=== PATIENT | male | born 1955 | race Caucasian/White ===

== ENCOUNTER 2019-10-15 09:33 | Emergency (ER) | payer BC, OTHER ==
[~2019-10-15] VITALS: Ht 170.2 cm; Wt 88.6 kg
--- NOTE | 2019-10-15 10:01 | REP ---
Clinical: Acute chest pain . Comparison: None . Findings: The mediastinum and cardiac silhouette are stable and within normal limits for portable technique. The lung edge are clear without acute consolidation, effusion, or pneumothorax. Skeletal structures are intact. Impression: No acute cardiopulmonary process appreciated. Electronically Signed by Gerald Roche MD 10/15/2019 09:53 A
[2019-10-15 10:15] LABS: BASO # 0.1 10^3/uL (0.0-0.2); BASO % 0.6 % (0.0-1.0); EOS # 0.1 10^3/uL (0.0-0.5); EOS % 1.2 % (0.0-3.0); HEMATOCRIT 52.3 % (42.0-52.0); HEMOGLOBIN 17.1 g/dl (13.5-17.5); LYMPH # 1.4 10^3/uL (1.5-5.0); LYMPH % 17.3 % (24.0-44.0); MEAN CORPUSCULAR HEMOGLOBIN 29.9 pg (27.0-33.0); MEAN CORPUSCULAR HGB CONC 32.7 g/dl (32.0-36.5); MEAN CORPUSCULAR VOLUME 91.6 fl (80.0-96.0); MONO # 0.8 10^3/uL (0.0-0.8); MONO % 10.3 % (0.0-5.0); NEUTROPHILS # 5.6 10^3/uL (1.5-8.5); NEUTROPHILS % 70.4 % (36.0-66.0); PLATELET COUNT, AUTOMATED 247 10^3/uL (150-450); RED BLOOD COUNT 5.71 10^6/uL (4.30-6.10)
[2019-10-15] MEDS ORDERED: OSTETAB2 PO (10:20)
[2019-10-15] MEDS ORDERED: CVS400CA PO (10:20)
[2019-10-15] MEDS ORDERED: ASPI81TA85 PO (10:20)
[2019-10-15] MEDS ORDERED: FISH1000 PO (10:20)
[2019-10-15] MEDS ORDERED: NAPR220C14 PO (10:20)
[2019-10-15] MEDS ORDERED: ATOR1TAB21 PO (10:20)
[2019-10-15] MEDS ORDERED: GNP250TA9 PO (10:20)
[2019-10-15] MEDS ORDERED: NITROGLYCERIN 0.4 MG SUBL TABLET SL PRN (10:30)
[2019-10-15 10:37] LABS: BLOOD UREA NITROGEN 23 MG/DL (7-18); CALCIUM LEVEL 9.3 MG/DL (8.8-10.2); CARBON DIOXIDE LEVEL 27 MEQ/L (21-32); CHLORIDE LEVEL 109 MEQ/L (98-107); CK-MB VALUE MASS 24.6 NG/ML (<3.6); CPK CREATINE PHOSPHOKINASE 330 U/L (39-308); CREATININE FOR GFR 1.16 MG/DL (0.70-1.30); GLOMERULAR FILTRATION RATE > 60.0 (>49); GLUCOSE, FASTING 124 MG/DL (70-100); MB/CK RELATIVE INDEX 7.45 (< OR =4); POTASSIUM SERUM 4.3 MEQ/L (3.5-5.1); SODIUM LEVEL 143 MEQ/L (136-145); TROPONIN I 0.07 NG/ML (< 0.10)
[2019-10-15 10:42] VITALS: BP 161/90
[2019-10-15 12:56] LABS: CK-MB VALUE MASS 24.3 NG/ML (<3.6); MB/CK RELATIVE INDEX 7.74 (< OR =4); TROPONIN I 0.73 NG/ML (< 0.10)
[2019-10-15] MEDS ORDERED: HEPARIN DRIP 25,000 UNITS in IV 1 EA IV SCH (13:13)
[2019-10-15] MEDS ORDERED: CLOPIDOGREL 300 MG TAB (PLAVIX) PO ONE (13:15)
[2019-10-15] MEDS ORDERED: HEPARIN SOD (PORCINE) 5000 UNITS/ML VIAL IV ONE (13:15)
[2019-10-15 14:13] VITALS: BP 161/105
--- NOTE | 2019-10-15 19:50 | ECGEPIP ---
[facility] - ED Test Date: 2019-10-15 Pat Name: VICENTE CARRION Department: Room: - Gender: Male [employer] Teacher: JENNIFER : 1955 Requested By: Rafaela Feliciano Order Number: [id number] Reading MD: Elgin North Measurements Intervals [place] Rate: 51 P: 49 MD: 128 QRS: 69 QRSD: 104 T: 64 QT: 407 QTc: 378 Interpretive Statements SINUS BRADYCARDIA NONSPECIFIC T-WAVE ABNORMALITY NO PRIORS FOR COMPARISON Electronically Signed on 10-15-2019 19:50:07 EST by Elgin North
== END 2019-10-15 14:15 | disposition short-term general hospital (02) ==
LOC: EDBD 09:33 → M ED 09:33
DX: I24.9 Acute ischemic heart disease, unspecified (principal); R00.1 Bradycardia, unspecified; R06.02 Shortness of breath; R11.0 Nausea; E78.5 Hyperlipidemia, unspecified; R73.03 Prediabetes; Z82.49 Family history of ischemic heart disease and other diseases of the circulatory system; Z79.899 Other long term (current) drug therapy; Z79.82 Long term (current) use of aspirin

== ENCOUNTER → 2020-01-21 | Outpatient (REF) | payer BC ==
[~2020-01-21] MED LIST: ASPI81TA85 PO; ATOR1TAB21 PO; CVS400CA PO; FISH1000 PO; GNP250TA9 PO; NAPR220C14 PO; OSTETAB2 PO
[2020-01-21 14:22] LABS: ALBUMIN 4.1 GM/DL (3.2-5.2); ALT/SGPT 81 U/L (12-78); BILIRUBIN,TOTAL 1.7 MG/DL (0.2-1.0); BLOOD UREA NITROGEN 25 MG/DL (7-18); CALCIUM LEVEL 9.5 MG/DL (8.8-10.2); CARBON DIOXIDE LEVEL 30 MEQ/L (21-32); CHLORIDE LEVEL 108 MEQ/L (98-107); CHOLESTEROL LEVEL 136 MG/DL (<200); CREATININE FOR GFR 1.06 MG/DL (0.70-1.30); GLOMERULAR FILTRATION RATE > 60.0 (>49); GLUCOSE, FASTING 99 MG/DL (70-100); HDL CHOLESTEROL 44 MG/DL (>40); LDL CHOLESTEROL 69 MG/DL (<100); NON-HDL-C 92 MG/DL; POTASSIUM SERUM 5.1 MEQ/L (3.5-5.1); SODIUM LEVEL 141 MEQ/L (136-145); TRIGLYCERIDES LEVEL 116 MG/DL (<150)
== END ==
LOC: M LABDRWAD 13:02
PROVIDERS: ATTEND Nurse Practitioner Family
DX: E78.5 Hyperlipidemia, unspecified (principal)

== ENCOUNTER → 2020-07-23 | Outpatient (REF) | payer BC ==
[~2020-07-23] MED LIST changes: -ASPI81TA85 PO; +ASPI81TA86 PO
[2020-07-23 21:27] LABS: ALBUMIN 3.9 GM/DL (3.2-5.2); BILIRUBIN,TOTAL 1.7 MG/DL (0.2-1.0); CALCIUM LEVEL 9.1 MG/DL (8.8-10.2); CHOLESTEROL RISK RATIO 2.796 (<5); CREATININE FOR GFR 1.32 MG/DL (0.70-1.30); GLOMERULAR FILTRATION RATE 57.9 (>49); POTASSIUM SERUM 4.4 MEQ/L (3.5-5.1); TOTAL 25(OH) VITAMIN D 87.9 NG/ML (30.0-100.0); TOTAL PROTEIN 6.9 GM/DL (6.4-8.2)
== END ==
LOC: M LABDRWAD 08:00
PROVIDERS: ATTEND Nurse Practitioner Family
DX: I25.10 Atherosclerotic heart disease of native coronary artery without angina pectoris (principal); Z98.61 Coronary angioplasty status

== ENCOUNTER → 2020-10-27 | Outpatient (CLI) | payer SELFPAY | LOC: M LABSMTC 12:44 | PROVIDERS: ATTEND Pediatrics | DX: Z20.828 Contact with and (suspected) exposure to other viral communicable diseases (principal) ==

== ENCOUNTER → 2020-12-16 | Outpatient (REF) | payer BC, MEDICARE ==
[2020-12-16 14:07] LABS: ALBUMIN 4.1 GM/DL (3.2-5.2); ALT/SGPT 74 U/L (12-78); BILIRUBIN,TOTAL 1.8 MG/DL (0.2-1.0); BLOOD UREA NITROGEN 28 MG/DL (7-18); CARBON DIOXIDE LEVEL 30 MEQ/L (21-32); CHLORIDE LEVEL 103 MEQ/L (98-107); CHOLESTEROL LEVEL 181 MG/DL (<200); GLOMERULAR FILTRATION RATE > 60.0 (>49); GLUCOSE, FASTING 114 MG/DL (70-100); HDL CHOLESTEROL 52 MG/DL (>40); LDL CHOLESTEROL 98 MG/DL (<100); NON-HDL-C 129 MG/DL; SODIUM LEVEL 140 MEQ/L (136-145); TOTAL PROTEIN 6.9 GM/DL (6.4-8.2); TRIGLYCERIDES LEVEL 154 MG/DL (<150)
== END ==
LOC: M LABDRWAD 12:44
PROVIDERS: ATTEND Nurse Practitioner Family
DX: E78.49 Other hyperlipidemia (principal); I25.10 Atherosclerotic heart disease of native coronary artery without angina pectoris; Z98.61 Coronary angioplasty status

== ENCOUNTER → 2021-06-15 | Outpatient (REF) | payer MEDICARE ==
[2021-06-15 14:41] LABS: ALT/SGPT 68 U/L (12-78); BLOOD UREA NITROGEN 28 MG/DL (7-18); CARBON DIOXIDE LEVEL 28 MEQ/L (21-32); CHLORIDE LEVEL 108 MEQ/L (98-107); CHOLESTEROL LEVEL 190 MG/DL (<200); CHOLESTEROL RISK RATIO 3.653 (<5); CREATININE FOR GFR 1.09 MG/DL (0.70-1.30); GLOMERULAR FILTRATION RATE > 60.0 (>49); GLUCOSE, FASTING 111 MG/DL (70-100); HDL CHOLESTEROL 52 MG/DL (>40); LDL CHOLESTEROL 110 MG/DL (<100); NON-HDL-C 138 MG/DL; POTASSIUM SERUM 4.5 MEQ/L (3.5-5.1); SODIUM LEVEL 139 MEQ/L (136-145); TOTAL PROTEIN 7.2 GM/DL (6.4-8.2); TRIGLYCERIDES LEVEL 138 MG/DL (<150)
== END ==
LOC: M LABDRWAD 12:35
PROVIDERS: ATTEND Nurse Practitioner Family
DX: I25.10 Atherosclerotic heart disease of native coronary artery without angina pectoris (principal); Z98.61 Coronary angioplasty status

== ENCOUNTER → 2021-10-21 | Outpatient (REF) | payer MEDICARE ==
[2021-10-21 13:31] LABS: ALBUMIN 3.6 GM/DL (3.2-5.2); ALT/SGPT 57 U/L (12-78); BILIRUBIN,TOTAL 1.1 MG/DL (0.2-1.0); BLOOD UREA NITROGEN 27 MG/DL (7-18); CALCIUM LEVEL 9.8 MG/DL (8.8-10.2); CARBON DIOXIDE LEVEL 28 MEQ/L (21-32); CHLORIDE LEVEL 107 MEQ/L (98-107); CHOLESTEROL LEVEL 134 MG/DL (<200); CHOLESTEROL RISK RATIO 2.576 (<5); CREATININE FOR GFR 1.14 MG/DL (0.70-1.30); GLOMERULAR FILTRATION RATE > 60.0 (>49); GLUCOSE, FASTING 156 MG/DL (70-100); HDL CHOLESTEROL 52 MG/DL (>40); LDL CHOLESTEROL 57 MG/DL (<100); NON-HDL-C 82 MG/DL; POTASSIUM SERUM 4.6 MEQ/L (3.5-5.1); SODIUM LEVEL 141 MEQ/L (136-145); TOTAL PROTEIN 6.8 GM/DL (6.4-8.2); TRIGLYCERIDES LEVEL 126 MG/DL (<150)
== END ==
LOC: M LABDRWAD 12:18
PROVIDERS: ATTEND Nurse Practitioner Family
DX: I25.10 Atherosclerotic heart disease of native coronary artery without angina pectoris (principal); Z98.61 Coronary angioplasty status; E78.49 Other hyperlipidemia

== ENCOUNTER → 2022-01-26 | Outpatient (REF) | payer MEDICARE ==
[2022-01-26 13:57] LABS: ALBUMIN 3.9 GM/DL (3.2-5.2); ALT/SGPT 73 U/L (12-78); BILIRUBIN,TOTAL 2.1 MG/DL (0.2-1.0); BLOOD UREA NITROGEN 25 MG/DL (7-18); CALCIUM LEVEL 9.4 MG/DL (8.8-10.2); CARBON DIOXIDE LEVEL 29 MEQ/L (21-32); CHLORIDE LEVEL 108 MEQ/L (98-107); CHOLESTEROL LEVEL 142 MG/DL (<200); CHOLESTEROL RISK RATIO 2.897 (<5); CREATININE FOR GFR 1.12 MG/DL (0.70-1.30); GLOMERULAR FILTRATION RATE > 60.0 (>49); GLUCOSE, FASTING 100 MG/DL (70-100); HDL CHOLESTEROL 49 MG/DL (>40); LDL CHOLESTEROL 63 MG/DL (<100); NON-HDL-C 93 MG/DL; POTASSIUM SERUM 4.2 MEQ/L (3.5-5.1); SODIUM LEVEL 141 MEQ/L (136-145); TOTAL PROTEIN 6.9 GM/DL (6.4-8.2); TRIGLYCERIDES LEVEL 151 MG/DL (<150)
== END ==
LOC: M LABDRWAD 12:22
PROVIDERS: ATTEND Nurse Practitioner Family
DX: I25.10 Atherosclerotic heart disease of native coronary artery without angina pectoris (principal); Z98.61 Coronary angioplasty status

== ENCOUNTER → 2022-03-09 | Outpatient (CLI) | payer MEDICARE ==
[2022-03-09 12:42] LABS: HEMATOCRIT 50.5 % (42.0-52.0); HEMOGLOBIN 16.6 g/dl (13.5-17.5); MEAN CORPUSCULAR HEMOGLOBIN 29.2 pg (27.0-33.0); MEAN CORPUSCULAR HGB CONC 32.9 g/dl (32.0-36.5); MEAN CORPUSCULAR VOLUME 88.9 fl (80.0-96.0); PLATELET COUNT, AUTOMATED 218 10^3/uL (150-450); RED BLOOD COUNT 5.68 10^6/uL (4.30-6.10); WHITE BLOOD COUNT 6.1 10^3/uL (4.0-10.0)
[2022-03-09 12:52] LABS: IRON (FE) 106 UG/DL (65-175); PERCENT SATURATION 30.9 % (19.7-50.0); TOTAL IRON BINDING CAPACITY 343 UG/DL (250-450)
[2022-03-09 13:02] LABS: HEPATITIS B SURFACE ANTIBODY NEGATIVE (POSITIVE)
[2022-03-09 13:12] LABS: HEPATITIS B SURFACE ANTIGEN NEGATIVE (NEGATIVE)
[2022-03-09 13:41] LABS: HEPATITIS C VIRUS ABY INDEX 0.1 INDEX (<0.8)
== END ==
LOC: M ADAMS 09:19
PROVIDERS: ATTEND Nurse Practitioner Family
DX: R79.89 Other specified abnormal findings of blood chemistry (principal)

== ENCOUNTER → 2022-03-09 | Outpatient (CLI) | payer MEDICARE | LOC: M RAD 07:56 | PROVIDERS: ATTEND Nurse Practitioner Family | DX: K76.0 Fatty (change of) liver, not elsewhere classified (principal); R79.89 Other specified abnormal findings of blood chemistry ==

== ENCOUNTER → 2022-05-27 | Outpatient (REF) | payer MEDICARE ==
[2022-05-27 16:22] LABS: HEMATOCRIT 51.8 % (42.0-52.0); MEAN CORPUSCULAR HEMOGLOBIN 29.5 pg (27.0-33.0); MEAN CORPUSCULAR HGB CONC 32.8 g/dl (32.0-36.5); MEAN CORPUSCULAR VOLUME 89.9 fl (80.0-96.0); PLATELET COUNT, AUTOMATED 224 10^3/uL (150-450); RED BLOOD COUNT 5.76 10^6/uL (4.30-6.10); WHITE BLOOD COUNT 7.3 10^3/uL (4.0-10.0)
[2022-05-27 16:29] LABS: ALBUMIN 4.1 GM/DL (3.2-5.2); ALT/SGPT 79 U/L (12-78); BILIRUBIN,TOTAL 1.5 MG/DL (0.2-1.0); BLOOD UREA NITROGEN 25 MG/DL (7-18); CALCIUM LEVEL 9.4 MG/DL (8.8-10.2); CARBON DIOXIDE LEVEL 27 MEQ/L (21-32); CHLORIDE LEVEL 109 MEQ/L (98-107); CHOLESTEROL LEVEL 135 MG/DL (<200); CHOLESTEROL RISK RATIO 2.596 (<5); CREATININE FOR GFR 0.99 MG/DL (0.70-1.30); FREE T4 0.88 NG/DL (0.76-1.46); GLOMERULAR FILTRATION RATE > 60.0 (>49); GLUCOSE, FASTING 96 MG/DL (70-100); HDL CHOLESTEROL 52 MG/DL (>40); LDL CHOLESTEROL 57 MG/DL (<100); NON-HDL-C 83 MG/DL; POTASSIUM SERUM 4.3 MEQ/L (3.5-5.1); SODIUM LEVEL 142 MEQ/L (136-145); TOTAL PROTEIN 7.2 GM/DL (6.4-8.2); TRIGLYCERIDES LEVEL 128 MG/DL (<150)
[2022-05-27 16:35] LABS: TOTAL 25(OH) VITAMIN D 45.3 NG/ML (30.0-100.0)
== END ==
LOC: M SFHCADAM 12:01
PROVIDERS: ATTEND Family Medicine
DX: I25.10 Atherosclerotic heart disease of native coronary artery without angina pectoris (principal); Z95.5 Presence of coronary angioplasty implant and graft; E78.5 Hyperlipidemia, unspecified; E55.9 Vitamin D deficiency, unspecified; Z13.1 Encounter for screening for diabetes mellitus; Z12.5 Encounter for screening for malignant neoplasm of prostate
CPT/HCPCS: 80053; 80061; 82306; 83036; 84439; 84443; 85027; G0103

== ENCOUNTER → 2023-06-28 | Outpatient (REF) | payer MEDICARE ==
[2023-06-28 14:26] LABS: ALKALINE PHOSPHATASE 104 U/L (46-116); ALT/SGPT 63 U/L (7.0-40); AST/SGOT 45 U/L (<34); BILIRUBIN,TOTAL 1.6 MG/DL (0.3-1.2); BLOOD UREA NITROGEN 24 MG/DL (9-23); CALCIUM LEVEL 9.4 MG/DL (8.3-10.6); CARBON DIOXIDE LEVEL 27 MMOL/L (20-31); CHLORIDE LEVEL 105 MMOL/L (98-107); CHOLESTEROL LEVEL 140 MG/DL (<200); CHOLESTEROL RISK RATIO 2.89 (<5); CREATININE FOR GFR 0.97 MG/DL (0.70-1.30); GLOMERULAR FILTRATION RATE > 60.0 (>49); GLUCOSE, FASTING 109 MG/DL (74-106); HDL CHOLESTEROL 48.4 MG/DL (>40); NON-HDL-C 91.6 MG/DL; POTASSIUM SERUM 4.4 MMOL/L (3.5-5.1); SODIUM LEVEL 140 MMOL/L (136-145); TRIGLYCERIDES LEVEL 133 MG/DL (<150)
== END ==
LOC: M LABDRWAD 12:40
PROVIDERS: ATTEND Nurse Practitioner Family
DX: E78.49 Other hyperlipidemia (principal)

== ENCOUNTER → 2023-06-28 | Outpatient (REF) | payer MEDICARE ==
[2023-06-28 14:11] LABS: HEMOGLOBIN 17.3 g/dl (13.5-17.5); MEAN CORPUSCULAR HEMOGLOBIN 29.2 pg (27.0-33.0); MEAN CORPUSCULAR VOLUME 91.2 fl (80.0-96.0); PLATELET COUNT, AUTOMATED 223 10^3/uL (150-450); RED BLOOD COUNT 5.92 10^6/uL (4.30-6.10); WHITE BLOOD COUNT 7.4 10^3/uL (4.0-10.0)
[2023-06-28 14:26] LABS: ALBUMIN 4.1 G/DL (3.2-5.2); ALKALINE PHOSPHATASE 105 U/L (46-116); ALT/SGPT 65 U/L (7.0-40); AST/SGOT 47 U/L (<34); BILIRUBIN,TOTAL 1.6 MG/DL (0.3-1.2); BLOOD UREA NITROGEN 23 MG/DL (9-23); CALCIUM LEVEL 9.5 MG/DL (8.3-10.6); CARBON DIOXIDE LEVEL 28 MMOL/L (20-31); CHLORIDE LEVEL 106 MMOL/L (98-107); CHOLESTEROL LEVEL 135 MG/DL (<200); CHOLESTEROL RISK RATIO 2.75 (<5); GLOMERULAR FILTRATION RATE > 60.0 (>49); GLUCOSE, FASTING 116 MG/DL (74-106); LDL CHOLESTEROL 61.6 MG/DL (<100); POTASSIUM SERUM 4.7 MMOL/L (3.5-5.1); SODIUM LEVEL 143 MMOL/L (136-145); TRIGLYCERIDES LEVEL 122 MG/DL (<150)
[2023-06-28 14:31] LABS: TOTAL 25(OH) VITAMIN D 37.7 NG/ML (20.0-100.0)
== END ==
LOC: M SFHCADAM 07:32
PROVIDERS: ATTEND Family Medicine
DX: Z00.00 Encounter for general adult medical examination without abnormal findings (principal); I25.10 Atherosclerotic heart disease of native coronary artery without angina pectoris; E78.5 Hyperlipidemia, unspecified; E55.9 Vitamin D deficiency, unspecified; Z12.5 Encounter for screening for malignant neoplasm of prostate
CPT/HCPCS: 80053; 80061; 82306; 85027; G0103

== ENCOUNTER → 2023-11-25 | Outpatient (CLI) | payer MEDICARE | LOC: M ADAMS 14:46 | PROVIDERS: ATTEND Family Medicine | DX: S13.9XXA Sprain of joints and ligaments of unspecified parts of neck, initial encounter (principal); X58.XXXA Exposure to other specified factors, initial encounter; Y92.9 Unspecified place or not applicable; Y93.9 Activity, unspecified; Y99.9 Unspecified external cause status ==

== ENCOUNTER → 2024-05-16 | Outpatient (REF) | payer MEDICARE ==
[2024-05-16 14:25] LABS: HEMATOCRIT 51.5 % (42.0-52.0); HEMOGLOBIN 16.8 g/dl (13.5-17.5); MEAN CORPUSCULAR HEMOGLOBIN 29.6 pg (27.0-33.0); MEAN CORPUSCULAR HGB CONC 32.6 g/dl (32.0-36.5); MEAN CORPUSCULAR VOLUME 90.7 fl (80.0-96.0); PLATELET COUNT, AUTOMATED 231 10^3/uL (150-450); RED BLOOD COUNT 5.68 10^6/uL (4.30-6.10); WHITE BLOOD COUNT 7.7 10^3/uL (4.0-10.0)
[2024-05-16 14:26] LABS: ALBUMIN 4.1 G/DL (3.2-5.2); ALKALINE PHOSPHATASE 107 U/L (46-116); ALT/SGPT 63 U/L (7.0-40); AST/SGOT 52 U/L (<34); BILIRUBIN,TOTAL 2.2 MG/DL (0.3-1.2); BLOOD UREA NITROGEN 28 MG/DL (9-23); CALCIUM LEVEL 9.3 MG/DL (8.3-10.6); CARBON DIOXIDE LEVEL 26 MMOL/L (20-31); CHLORIDE LEVEL 106 MMOL/L (98-107); CHOLESTEROL LEVEL 143 MG/DL (<200); CHOLESTEROL RISK RATIO 3.06 (<5); CREATININE FOR GFR 1.01 MG/DL (0.70-1.30); GLOMERULAR FILTRATION RATE > 60.0 (>49); GLUCOSE, FASTING 111 MG/DL (74-106); HDL CHOLESTEROL 46.6 MG/DL (>40); NON-HDL-C 96.4 MG/DL; POTASSIUM SERUM 4.2 MMOL/L (3.5-5.1); SODIUM LEVEL 139 MMOL/L (136-145); TRIGLYCERIDES LEVEL 102 MG/DL (<150)
[2024-05-16 14:27] LABS: THYROID STIMULATING HORMONE 1.278 uIU/ML (0.55-4.78); TOTAL 25(OH) VITAMIN D 42.6 NG/ML (20.0-100.0)
[2024-05-16 14:28] LABS: FREE T4 0.97 NG/DL (0.89-1.76)
[2024-05-16 15:11] LABS: HEMOGLOBIN A1c 6.2 % (4.0-6.0)
== END ==
LOC: M SFHCADAM 07:48
PROVIDERS: ATTEND Family Medicine
DX: E78.2 Mixed hyperlipidemia (principal); I25.2 Old myocardial infarction; Z13.1 Encounter for screening for diabetes mellitus; E55.9 Vitamin D deficiency, unspecified

== ENCOUNTER → 2024-12-07 | Outpatient (REF) | payer MEDICARE ==
[2024-12-07 14:17] LABS: HEMATOCRIT 53.6 % (42.0-52.0); HEMOGLOBIN 17.7 g/dl (13.5-17.5); MEAN CORPUSCULAR HEMOGLOBIN 29.7 pg (27.0-33.0); MEAN CORPUSCULAR VOLUME 90.1 fl (80.0-96.0); PLATELET COUNT, AUTOMATED 247 10^3/uL (150-450); PSA SCREENING 2.44 NG/ML (< 4.00); RED BLOOD COUNT 5.95 10^6/uL (4.30-6.10); WHITE BLOOD COUNT 7.4 10^3/uL (4.0-10.0)
[2024-12-07 14:20] LABS: ALBUMIN 4.3 G/DL (3.2-5.2); ALKALINE PHOSPHATASE 107 U/L (40-129); ALT/SGPT 57 U/L (7.0-40); AST/SGOT 54 U/L (<34); BILIRUBIN,TOTAL 1.5 MG/DL (0.3-1.2); BLOOD UREA NITROGEN 21 MG/DL (9-23); CALCIUM LEVEL 9.5 MG/DL (8.3-10.6); CARBON DIOXIDE LEVEL 27 MMOL/L (20-31); CHLORIDE LEVEL 108 MMOL/L (98-107); CHOLESTEROL LEVEL 138 MG/DL (<200); CHOLESTEROL RISK RATIO 2.75 (<5); CREATININE FOR GFR 1.06 MG/DL (0.70-1.30); GLOMERULAR FILTRATION RATE > 60.0 (>42); GLUCOSE, FASTING 107 MG/DL (74-106); HDL CHOLESTEROL 50.1 MG/DL (>40); LDL CHOLESTEROL 67.3 MG/DL (<100); NON-HDL-C 87.9 MG/DL; POTASSIUM SERUM 4.1 MMOL/L (3.5-5.1); SODIUM LEVEL 144 MMOL/L (136-145); THYROID STIMULATING HORMONE 2.196 uIU/ML (0.55-4.78); TOTAL PROTEIN 7.3 G/DL (5.7-8.2); TRIGLYCERIDES LEVEL 103 MG/DL (<150)
[2024-12-07 14:21] LABS: VITAMIN B12 LEVEL 425 PG/ML (211-911)
[2024-12-07 14:22] LABS: FREE T4 1.01 NG/DL (0.89-1.76)
[2024-12-07 14:27] LABS: FOLATE 14.28 NG/ML (>5.4)
[2024-12-07 15:40] LABS: HEMOGLOBIN A1c 6.1 % (4.0-6.0)
== END ==
LOC: M SFHCADAM 08:46
PROVIDERS: ATTEND Family Medicine
DX: E78.2 Mixed hyperlipidemia (principal); Z13.1 Encounter for screening for diabetes mellitus; Z12.5 Encounter for screening for malignant neoplasm of prostate; I25.2 Old myocardial infarction; R41.3 Other amnesia
CPT/HCPCS: 80053; 80061; 82607; 82746; 83036; 84439; 84443; 85027; G0103

== ENCOUNTER 2025-01-01 10:59 | Emergency (ER) | payer MEDICARE ==
[~2025-01-01] VITALS: Ht 170.2 cm; Wt 96.4 kg
[2025-01-01] MEDS: BOOSTRIX VACCINE (TETANUS/DIPHTH/ACEL. PERTUSSIS) 0.5ML SYR IM ONE (11:25)
[2025-01-01] MEDS: LIDOCAINE 2% MDV 20ML VIAL SC ONE (13:40)
[2025-01-01] MEDS: ceFAZolin SOD 2 GM in IV 1 EA IV ONE (14:48)
[2025-01-01] MEDS ORDERED: CEPH500C PO (14:50)
[2025-01-01 15:01] VITALS: BP 151/91; TEMP 97.2; O2SAT 97
== END 2025-01-01 15:02 | disposition home or self-care (01) ==
LOC: M ED 10:59
DX: S51.812A Laceration without foreign body of left forearm, initial encounter (principal); Y92.019 Unspecified place in single-family (private) house as the place of occurrence of the external cause; Y93.9 Activity, unspecified; Y99.9 Unspecified external cause status; I25.2 Old myocardial infarction; Z23 Encounter for immunization; Z79.1 Long term (current) use of non-steroidal anti-inflammatories (NSAID); Z79.2 Long term (current) use of antibiotics; Z79.899 Other long term (current) drug therapy
CPT/HCPCS: 12002; 73110; 90471; 90715; 96374; 99284; J0690

== ENCOUNTER → 2025-06-19 | Outpatient (REF) | payer MEDICARE ==
[~2025-06-19] MED LIST changes: +CEPH500C PO
[2025-06-19 14:27] LABS: ALT/SGPT 59.0 U/L (7.0-40); AST/SGOT 55.0 U/L (<34); CALCIUM LEVEL 9.3 MG/DL (8.3-10.6); CARBON DIOXIDE LEVEL 25.0 MMOL/L (20-31); CHLORIDE LEVEL 106.0 MMOL/L (98-107); CHOLESTEROL LEVEL 124.0 MG/DL (<200); CHOLESTEROL RISK RATIO 2.39 (<5); CREATININE FOR GFR 1.18 MG/DL (0.70-1.30); GLOMERULAR FILTRATION RATE 66.4 (>42); LDL CHOLESTEROL 57.8 MG/DL (<100); NON-HDL-C 72.2 MG/DL; POTASSIUM SERUM 4.6 MMOL/L (3.5-5.1); SODIUM LEVEL 144.0 MMOL/L (136-145); TRIGLYCERIDES LEVEL 72.0 MG/DL (<150)
== END ==
LOC: M SFHCADAM 08:39
PROVIDERS: ATTEND Family Medicine
DX: E78.2 Mixed hyperlipidemia (principal)